=== PATIENT | female | born 1980 | race Caucasian/White ===

== ENCOUNTER → 2017-04-18 | Outpatient (CLI) | payer OTHER ==
[2017-04-20 14:19] LABS: CHLAMYDIA TRACH RNA*** NOT DETECTED (NOT DETECTED); GC (NEIS GONORRHOEAE)RNA** NOT DETECTED (NOT DETECTED)
--- NOTE | 2017-05-19 10:14 | CODING QUERY MEDICAL NECESSITY ---
CQSUPPORTING DIAGNOSIS NEEDED A supporting diagnosis is required for the test/procedure performed on this patient in order for us to be reimbursed by the patient's insurance. Please provide a supporting diagnosis for the following test/procedure listed below next to the test name along with your signature. *If there is no additional diagnosis for this patient that would support the following test/procedure please document that below next to the test/procedure. Test(s)/Procedure(s) that require a supporting diagnosis: DOS 04/18/17 SCREENING FOR SEXUALLY TRANSMITTED DISEASE Provider Signature: Date: Thank you Brittany Black Health Information Management Once completed, please kindly fax back to [phone] For questions please call [phone]
== END | disposition home or self-care (01) ==
LOC: C.LABSPEC 13:42
PROVIDERS: ATTEND Obstetrics & Gynecology
DX: Z12.4 Encounter for screening for malignant neoplasm of cervix (principal)

== ENCOUNTER → 2017-04-18 | Outpatient (CLI) | payer OTHER | END | disposition home or self-care (01) | LOC: C.LABSPEC 14:41 | PROVIDERS: ATTEND Obstetrics & Gynecology | DX: Z12.4 Encounter for screening for malignant neoplasm of cervix (principal) ==

== ENCOUNTER → 2017-04-28 | Outpatient (CLI) | payer OTHER ==
--- NOTE | 2017-04-28 12:32 | DIAGNOSTIC IMAGING REPORT ---
GALLBLADDER-ABD LIMITED CLINICAL HISTORY: R10.2 Pelvic pain pain. Nausea. TECHNIQUE: Ultrasound COMPARISON STUDY: 12/21/2006 FINDINGS: Prior cholecystectomy. Fatty infiltration of liver. Common bile duct 4 mm. Pancreas and right kidney unremarkable. IMPRESSION: Fatty infiltration of liver. Otherwise negative study post cholecystectomy The above report was generated using voice recognition software. It may contain grammatical, syntax or spelling errors. Electronically signed by: Elijah Chaves M.D. 04/28/2017 12:30 PM Dictated Date/Time: 04/28/2017 12:29 PM
--- NOTE | 2017-04-28 12:33 | DIAGNOSTIC IMAGING REPORT ---
PELVIC COMPLETE NON OB CLINICAL HISTORY: R10.2 Pelvic pain PELVIC PAIN COMPARISON STUDY: None FINDINGS: The uterus measured 9.6 cm. The endometrial stripe measured 8 mm. The right ovary measured 2.8 cm with normal vascular flow. The left ovary measured 2.6 cm with normal vascular flow. 1 cm follicular cyst.. There is no ultrasonographic evidence of ovarian torsion. It should be noted that ovarian torsion can be present with normal Doppler ultrasonographic findings. There was no evidence of pathologic free pelvic fluid. IMPRESSION: 1. 1 cm left ovarian follicular cyst. 2. Otherwise negative study. The above report was generated using voice recognition software. It may contain grammatical, syntax or spelling errors. Electronically signed by: Elijah Chaves M.D. 04/28/2017 12:31 PM Dictated Date/Time: 04/28/2017 12:30 PM
== END | disposition home or self-care (01) ==
LOC: C.ULTR 11:21
PROVIDERS: ATTEND Obstetrics & Gynecology
DX: R10.2 Pelvic and perineal pain (principal); K76.0 Fatty (change of) liver, not elsewhere classified; N83.02 Follicular cyst of left ovary

== ENCOUNTER 2019-12-18 20:14 | Observation (INO) ==
--- OUTSIDE RECORDS SUMMARY | 2019-12-18 20:17 | External Medical Summary | Continuity of Care Document ---
:1980 Author Name Johnathan De Luna, Provider Address Unavailable Unavailable , Care Team Providers Name Role Phone Grace Pozo DO Unavailable [email or web address] MIGUEL GRIJALVA Unavailable Unavailable Unavailable Unavailable Unavailable Assessments Assessed Problems:Encounter for routine gynecological examinationNon smoker Problems Encounter for routine gynecological examination (V72.31) (Z0 1.419) Non smoker (V49.89) (Z78.9) Pelvic pain (R10.2) Right upper quadrant abdominal pain of unknown etiology (789 .01) (R10.11) Polycystic ovarian syndrome (256.4) (E28.2) Mental retardation (319) (F79) Counseling for initiation of control method (V25.02) ( Z30.09) Amenorrhea (626.0) (N91.2) Acute cystitis (595.0) (N30.00) Allergies and Adverse Reactions No Known Drug Allergies (Allergy) Medications No Reported Medications Refills: 0 Procedures History of Cholecystectomy Status: Compl eted History of Appendectomy Status: Complete d Counseling for initiation of control method Immunizations Immunizations not documented Family History Grandmother Family history of Uterine Cancer (V16.49) Status: Active Social History - Smoking Status Tobacco smoking consumption unknown Interventions Labs/Procedures/ImagingTobacco Use Screening; Done: 19 Apr 2018InstructionsHigh- BMI is above normal parameters and patient education given regarding risks of abnormal BMI and associated educational information links. Patient offered dietitian referral.; Done: 19 Apr 2018Follow-ups/ReferralsFollow-up visit in 1 year; Done: 19 Apr 2018 Plan of Treatment Planned Observations Planned Goals not documented Results No Known Results Results not documented Encounters Appointment; Grace Pozo DO 19-Apr-2018 11:15 Encounter Diagnosis: Problem not documented
--- OUTSIDE RECORDS SUMMARY | 2019-12-18 20:17 | External Medical Summary | Continuity of Care Document ---
:1980 Author Name Johnathan De Luna, Provider Address Unavailable Unavailable , Care Team Providers Name Role Phone Grace Pozo DO Unavailable [email or web address] GRIJALVA Unavailable Unavailable Unavailable Unavailable Unavailable Assessments Assessed Problems:Encounter for routine gynecological examinationNon smoker Problems Acute cystitis (595.0) (N30.00) Amenorrhea (626.0) (N91.2) Counseling for initiation of control method (V25.02) ( Z30.09) Mental retardation (319) (F79) Polycystic ovarian syndrome (256.4) (E28.2) Right upper quadrant abdominal pain of unknown etiology (789 .01) (R10.11) Pelvic pain (R10.2) Non smoker (V49.89) (Z78.9) Encounter for routine gynecological examination (V72.31) (Z0 1.419) Allergies and Adverse Reactions No Known Drug [...]
[2019-12-18] MEDS ORDERED: KETOROLAC TROMETHAMINE 15 MG/ML VIAL IV ONE (20:41)
[2019-12-18] MEDS ORDERED: SODIUM CHLORIDE 0.9% 1000ML 1,000 ML IV ONE (20:41)
--- NOTE | 2019-12-18 21:16 | Emergency Department Note ---
Impression & Plan HTN (hypertension), Cough, Viral URI ED Provider Note NAME: MARGARET RIVAS AGE: 39 SEX: F : 1980 ARRIVES VIA: Walk-In INFORMANT: Patient ED PROVIDER(S): Chung Orozco DO CHIEF COMPLAINT: Cough, runny nose and sore throat HPI: Patient is a 39-year-old female who presents the ER for symptoms which have been present for the past 3 weeks. She notes she has had a nonproductive cough for the past 2 weeks. She also notes that she has had a sore throat which has been worsening. This is currently bothering her the most. Pain is a 10 out of 10. Worse with swallowing. She has been taking donr-fpf-[id number] medications with no significant improvement. She is uncertain of truly what these medications are that she is taking [id number]. She does also admit to a runny nose. She denies any recorded fevers above 100.4. She does note that she has felt hot. She does note that she has had some shortness of breath with coughing but currently does not have any now. Denies any chest pain, nausea vomiting or diarrhea. No exposure to anyone with coronavirus which she knows about. ROS: See above HPI for pertinent positives & negatives. A total of 10 systems reviewed and were otherwise negative. PAST MEDICAL HISTORY:See Below PAST SURGICAL HISTORY:See Below FAMILY HISTORY:See Below SOCIAL HISTORY:See Below HOME MEDICATIONS:See Below ALLERGIES:See Below VITALS:See Below PHYSICAL EXAMINATION: GENERAL: Sitting up in bed, obese, no acute distress, nontoxic, intermittent cough EYE EXAM: normal conjunctiva. OROPHARYNX: no exudate, no erythema, lips, buccal mucosa, and tongue normal and mucous membranes are moist NECK: supple, no nuchal rigidity, no adenopathy, non-tender LUNGS: Clear to auscultation. Normal chest wall mechanics HEART: no murmurs, S1 normal and S2 normal ABDOMEN: abdomen soft, non-tender, normo-active bowel sounds, no masses, no rebound or guarding. SKIN: no rashes and no bruising UPPER EXTREMITIES: upper extremities are grossly normal. LOWER EXTREMITIES: No pitting edema. NEURO EXAM: Normal sensorium, cranial nerves II-XII grossly intact, normal speech, no gross weakness of arms, no gross weakness of legs. MEDICAL DECISION MAKING: Patient is a 39-year-old female who presents the ER for upper respiratory symptoms which have been present for the past 3 weeks. She reports fevers, dry nonproductive cough, sore throat, runny nose and some intermittent shortness of breath previously. Does not follow with the PCP. Sister is present and sick as well with shortness of breath and a cough. Patient denies any recent trips or travel. No exposures. She does live at home with her mother. Does not work. She does also have a son. Upon presentation blood pressures have been extremely elevated. 200/140. She was given IV labetalol. EKG showed nonspecific ST wave changes which were subtle in the lateral leads. Unable to truly obtain what medication she took [id number] because she is uncertain. I question if this is a cause of her blood pressure but cannot be certain at this time. She does not follow with PCP. Chest x-ray was unremarkable. I initially upon her arrival ordered flu and coronavirus testing as I was planning discharge. After blood pressures remained elevated, she was given labetalol and bio fire was ordered. Will defer to the hospitalist for further testing but she remained on airborne precautions in the ER. D-dimer was negative. LDH was elevated. She was also given aspirin and IV fluids. Did remain in full PPE throughout stay in the ER. Triage Nursing notes reviewed. Prior medical records reviewed Vital Signs: reviewed and remarkable for hypertension Differential diagnosis: Differential diagnoses includes but is not limited to pneumonia, bronchitis, COPD/Asthma exacerbation, pneumothorax, pulmonary embolism, congestive heart failure, acute coronary syndrome ER treatment provided: See below Diagnostics interpreted by me: ECG: Sinus rhythm rate of 93 Normal axis No PVCs Subtle nonspecific ST wave changes V4 through V6 Normal QTC Cardiac Monitoring: Sinus rhythm rate of 90 Laboratory studies: As stated above and show below. Imaging studies: Chest x-ray shows no focal infiltrate. Consultation(s): Discussed with Dr. Jared Zeng. ED COURSE: Procedures: none Critical Care: None Past Med/Surg History Social History Preferred Language: Andorran Feels Safe at Home: Yes Smoking Status: Never smoker Allergies Allergies Allergy/AdvReac Type Severity Reaction Status Date / Time No Known Allergies Verified 12/18/19 21:52 Home Meds Home Medications Medication Instructions Recorded Confirmed [id number] 1 cap PO UD PRN 12/18/19 12/18/19 [Vicks DayQuil Cold-Flu Relief] Results & Data (ED) Vital Signs Vital Signs - 24 hr 12/18/19 20:19 12/18/19 21:05 12/18/19 21:16 Temperature 37.0 C Temperature Source Oral Pulse Rate 109 H 104 H 107 H Pulse Rate [Right Finger] 101 H Pulse Rate from SpO2 Sensor Pulse Rhythm Regular Respiratory Rate 20 19 Respiratory Depth Blood Pressure 213/130 H 173/125 H Blood Pressure [Right Arm] 173/125 H Blood Pressure Mean 157 138 Blood Pressure Mean [Right Arm] 141 Blood Pressure Position [Right Arm] Pulse Oximetry 99 98 100 Oxygen Delivery Method Room Air Room Air Sepsis Recent Fever Within 48 Hours No Sepsis New/Unexplained Change in Mental Status No Sepsis Action Taken by Nursing No Action Required 12/18/19 21:18 12/18/19 21:30 12/18/19 21:36 Temperature Temperature Source Pulse Rate 99 H 93 H 91 H Pulse Rate [Right Finger] Pulse Rate from SpO2 Sensor Pulse Rhythm Respiratory Rate Respiratory Depth Blood Pressure 174/124 H Blood Pressure [Right Arm] Blood Pressure Mean 149 Blood Pressure Mean [Right Arm] Blood Pressure Position [Right Arm] Pulse Oximetry 97 98 100 Oxygen Delivery Method Sepsis Recent Fever Within 48 Hours Sepsis New/Unexplained Change in Mental Status Sepsis Action Taken by Nursing 12/18/19 21:39 12/18/19 21:40 12/18/19 22:00 Temperature Temperature Source Pulse Rate 90 91 H Pulse Rate [Right Finger] 90 90 Pulse Rate from SpO2 Sensor Pulse Rhythm Respiratory Rate 20 19 Respiratory Depth Normal Blood Pressure 177/119 H Blood Pressure [Right Arm] 177/119 H 199/139 H Blood Pressure Mean 147 Blood Pressure Mean [Right Arm] 138 159 Blood Pressure Position [Right Arm] Lying Pulse Oximetry 99 98 98 Oxygen Delivery Method Room Air Sepsis Recent Fever Within 48 Hours Sepsis New/Unexplained Change in Mental Status Sepsis Action Taken by Nursing 12/18/19 22:01 12/18/19 22:02 12/18/19 22:29 Temperature Temperature Source Pulse Rate 94 H 99 H 95 H Pulse Rate [Right Finger] Pulse Rate from SpO2 Sensor Pulse Rhythm Respiratory Rate Respiratory Depth Blood Pressure 206/149 H 199/139 H 191/150 H Blood Pressure [Right Arm] Blood Pressure Mean 171 161 165 Blood Pressure Mean [Right Arm] Blood Pressure Position [Right Arm] Pulse Oximetry 100 99 Oxygen Delivery Method Sepsis Recent Fever Within 48 Hours Sepsis New/Unexplained Change in Mental Status Sepsis Action Taken by Nursing 12/18/19 22:30 12/18/19 22:33 12/18/19 22:36 Temperature Temperature Source Pulse Rate 94 H Pulse Rate [Right Finger] Pulse Rate from SpO2 Sensor 91 H Pulse Rhythm Respiratory Rate Respiratory Depth Blood Pressure 208/128 H 163/103 H Blood Pressure [Right Arm] Blood Pressure Mean 140 126 Blood Pressure Mean [Right Arm] Blood Pressure Position [Right Arm] Pulse Oximetry 98 Oxygen Delivery Method Sepsis Recent Fever Within 48 Hours Sepsis New/Unexplained Change in Mental Status Sepsis Action Taken by Nursing 12/18/19 22:40 12/18/19 22:41 12/18/19 22:50 Temperature Temperature Source Pulse Rate Pulse Rate [Right Finger] 85 Pulse Rate from SpO2 Sensor 87 87 85 Pulse Rhythm Respiratory Rate 19 Respiratory Depth Blood Pressure 169/113 H Blood Pressure [Right Arm] 163/113 H Blood Pressure Mean 132 Blood Pressure Mean [Right Arm] 129 Blood Pressure Position [Right Arm] Pulse Oximetry 97 97 97 Oxygen Delivery Method Sepsis Recent Fever Within 48 Hours Sepsis New/Unexplained Change in Mental Status Sepsis Action Taken by Nursing 12/18/19 23:00 12/18/19 23:01 12/18/19 23:02 Temperature Temperature Source Pulse Rate Pulse Rate [Right Finger] Pulse Rate from SpO2 Sensor 98 H 97 H 100 H Pulse Rhythm Respiratory Rate Respiratory Depth Blood Pressure 195/128 H Blood Pressure [Right Arm] Blood Pressure Mean 139 Blood Pressure Mean [Right Arm] Blood Pressure Position [Right Arm] Pulse Oximetry 95 95 97 Oxygen Delivery Method Sepsis Recent Fever Within 48 Hours Sepsis New/Unexplained Change in Mental Status Sepsis Action Taken by Nursing 12/18/19 23:11 12/18/19 23:20 Temperature Temperature Source Pulse Rate Pulse Rate [Right Finger] Pulse Rate from SpO2 Sensor 88 92 H Pulse Rhythm Respiratory Rate Respiratory Depth Blood Pressure Blood Pressure [Right Arm] Blood Pressure Mean Blood Pressure Mean [Right Arm] Blood Pressure Position [Right Arm] Pulse Oximetry 98 96 Oxygen Delivery Method Sepsis Recent Fever Within 48 Hours Sepsis New/Unexplained Change in Mental Status Sepsis Action Taken by Nursing Laboratory Data Result diagrams: 12/18/19 21:08 12/18/19 21:08 Lab Results 12/18/19 12/18/19 12/18/19 Range/Units 21:08 21:08 21:08 WBC 8.36 (4.8-10.8) K/uL RBC 5.32 (4.2-5.4) M/uL Hgb 10.9 L (12.0-16.0) g/dL Hct 37.0 (37-47) % MCV 69.5 L (80-100) fL MCH 20.5 L (25-34) pg MCHC 29.5 L (32-36) g/dL RDW Std Deviation 42.6 (36.4-46.3) fL RDW Coeff of Amy 17.1 H (11.5-14.5) % Plt Count 297 (130-400) K/uL MPV 10.1 (7.4-10.4) fL Immature Gran % (Auto) 0.4 % Neut % (Auto) 68.7 % Lymph % (Auto) 21.2 % Milam % (Auto) 7.3 % Eos % (Auto) 2.0 % Baso % (Auto) 0.4 % Immature Gran # (Auto) 0.03 H (0.00-0.02) K/uL Neut # (Auto) 5.75 (1.4-6.5) K/uL Lymph # (Auto) 1.77 (1.2-3.4) K/uL Milam # (Auto) 0.61 H (0.11-0.59) K/uL Eos # (Auto) 0.17 (0-0.5) K/uL Baso # (Auto) 0.03 (0-0.2) K/uL Microcytosis Present PT 10.3 (9.0-12.0) Seconds INR 1.0 (0.9-1.1) APTT 20.3 L (21.0-31.0) Seconds PTT Ratio 0.7 D-Dimer (0-500) ug/L FEU Sodium 137 (136-145) mmol/L Potassium 3.2 L (3.5-5.1) mmol/L Chloride 104 (98-107) mmol/L Carbon Dioxide 26 (21-32) mmol/L Anion Gap 7.0 (3-11) BUN 10 (7-18) mg/dl Creatinine 1.03 (0.6-1.2) mg/dl Est Cr Clr Drug Dosing Not Reportable Est GFR ( Amer) 78.7 Est GFR (Non-Af Amer) 67.9 BUN/Creatinine Ratio 9.5 L (10-20) Glucose 157 H (70-99) mg/dl Calcium 9.0 (8.5-10.1) mg/dl Total Bilirubin 0.4 (0.2-1) mg/dl AST 22 (15-37) U/L ALT 30 (12-78) U/L Alkaline Phosphatase 72 (45-117) U/L Lactate Dehydrogenase (84-246) U/L Total Protein 8.4 H (6.4-8.2) gm/dl Albumin 3.6 (3.4-5.0) gm/dl Globulin 4.8 H (2.5-4.0) gm/dl Albumin/Globulin Ratio 0.8 L (0.9-2) Influenza Type A (PCR) (Neg) Influenza Type B (PCR) (Neg) 12/18/19 12/18/19 12/18/19 Range/Units 21:08 21:08 Unknown WBC (4.8-10.8) K/uL RBC (4.2-5.4) M/uL Hgb (12.0-16.0) g/dL Hct (37-47) % MCV (80-100) fL MCH (25-34) pg MCHC (32-36) g/dL RDW Std Deviation (36.4-46.3) fL RDW Coeff of Amy (11.5-14.5) % Plt Count (130-400) K/uL MPV (7.4-10.4) fL Immature Gran % (Auto) % Neut % (Auto) % Lymph % (Auto) % Milam % (Auto) % Eos % (Auto) % Baso % (Auto) % Immature Gran # (Auto) (0.00-0.02) K/uL Neut # (Auto) (1.4-6.5) K/uL Lymph # (Auto) (1.2-3.4) K/uL Milam # (Auto) (0.11-0.59) K/uL Eos # (Auto) (0-0.5) K/uL Baso # (Auto) (0-0.2) K/uL Microcytosis PT (9.0-12.0) Seconds INR (0.9-1.1) APTT (21.0-31.0) Seconds PTT Ratio D-Dimer 380 (0-500) ug/L FEU Sodium (136-145) mmol/L Potassium (3.5-5.1) mmol/L Chloride (98-107) mmol/L Carbon Dioxide (21-32) mmol/L Anion Gap (3-11) BUN (7-18) mg/dl Creatinine (0.6-1.2) mg/dl Est Cr Clr Drug Dosing Est GFR ( Amer) Est GFR (Non-Af Amer) BUN/Creatinine Ratio (10-20) Glucose (70-99) mg/dl Calcium (8.5-10.1) mg/dl Total Bilirubin (0.2-1) mg/dl AST (15-37) U/L ALT (12-78) U/L Alkaline Phosphatase (45-117) U/L Lactate Dehydrogenase 281 H (84-246) U/L Total Protein (6.4-8.2) gm/dl Albumin (3.4-5.0) gm/dl Globulin (2.5-4.0) gm/dl Albumin/Globulin Ratio (0.9-2) Influenza Type A (PCR) Neg for Influ A (Neg) Influenza Type B (PCR) Neg for Influ B (Neg) Administered Medications Discontinued Medications Aspirin (Aspirin) 324 mg PO NOW STA Stop: 12/18/19 22:52 Last Admin: 12/18/19 23:02 Dose: 324 mg Documented by: [id number] Sodium Chloride (Nss 1000ml) 1,000 mls @ 999 mls/hr IV .Q1H1M ONE Stop: 12/18/19 21:41 Last Infusion: 12/18/19 22:09 Dose: 0 mls/hr Documented by: [id number] Admin: 12/18/19 21:12 Dose: 999 mls/hr Documented by: [id number] Ketorolac Tromethamine (Toradol) 15 mg IV NOW ONE Stop: 12/18/19 20:42 Last Admin: 12/18/19 21:12 Dose: 15 mg Documented by: [id number] Labetalol HCl (Normodyne) 10 mg IV NOW STA Stop: 12/18/19 22:24 Last Admin: 12/18/19 22:42 Dose: 10 mg Documented by: [id number] Cosigned by: [id number] Metoprolol Succinate (Toprol Xl) 50 mg PO NOW STA Stop: 12/18/19 23:10 Last Admin: 12/18/19 23:37 Dose: 50 mg Documented by: [id number] Metoprolol Tartrate (Lopressor) 5 mg IV NOW STA Stop: 12/18/19 23:10 Last Admin: 12/18/19 23:37 Dose: 5 mg Documented by: [id number] Discharge Plan Visit Data Chief Complaint: Cough Stated Complaint: COUGH RUNNY NOSE ED Provider: Chung Orozco Discharge Problem: HTN (hypertension), Cough, Viral URI Forms Stand Alone Forms: [facility] [employer] Prescriptions Prescriptions: No Action Vicks DayQuil Cold-Flu Relief 5-10-325 mg Capsule 1 cap PO UD PRN (Reason: Flu Symptoms) RF: 0 Discharge Problem: HTN (hypertension) Qualifiers: Hypertension type: unspecified Qualified Code(s): I10 - Essential (primary) hypertension
[2019-12-18 21:22] LABS: Basophils # (auto) 0.03 K/uL (0-0.2); Basophils % (auto) 0.4 %; Eosinophils # (auto) 0.17 K/uL (0-0.5); Hemoglobin 10.9 g/dL (12.0-16.0); Immature Granulocytes # (auto) 0.03 K/uL (0.00-0.02); Immature Granulocytes % (auto) 0.4 %; Lymphocytes # (auto) 1.77 K/uL (1.2-3.4); Lymphocytes % (auto) 21.2 %; Mean Corpuscular Hemoglobin 20.5 pg (25-34); Mean Corpuscular Hgb Conc 29.5 g/dL (32-36); Mean Corpuscular Volume 69.5 fL (80-100); Mean Platelet Volume 10.1 fL (7.4-10.4); Monocytes # (auto) 0.61 K/uL (0.11-0.59); Monocytes % (auto) 7.3 %; Neutrophils # (auto) 5.75 K/uL (1.4-6.5); Neutrophils % (auto) 68.7 %; Platelet Count 297 K/uL (130-400); RDW Coefficient of Variation 17.1 % (11.5-14.5); RDW Standard Deviation 42.6 fL (36.4-46.3); Red Blood Count 5.32 M/uL (4.2-5.4); White Blood Count 8.36 K/uL (4.8-10.8)
--- NOTE | 2019-12-18 21:34 | XRay Report ---
XR chest 1V portable CLINICAL HISTORY: Dyspnea COMPARISON STUDY: No previous studies for comparison. FINDINGS: Lung volumes are normal. Lungs are clear. There is no pneumothorax or pleural effusion. Car diac size is normal. Mediastinal contours are normal. There is no evidence for pulmonary edema. Incid ental note is made of cholecystectomy clips. IMPRESSION: No acute cardiopulmonary findings. ACT 112: Negative or not required by law. Electronically signed by: Nabil Yoon M.D. 12/18/2019 9:33 PM
[2019-12-18 21:37] LABS: Partial Thromboplastin Ratio 0.7; Partial Thromboplastin Time 20.3 Seconds (21.0-31.0); Prothrombin Time 10.3 Seconds (9.0-12.0)
[2019-12-18 21:44] LABS: Alanine Aminotransferase 30 U/L (12-78); Albumin Level 3.6 gm/dl (3.4-5.0); Aspartate Aminotransferase 22 U/L (15-37); BUN Creatinine Ratio 9.5 (10-20); Blood Urea Nitrogen 10 mg/dl (7-18); Carbon Dioxide 26 mmol/L (21-32); Chloride 104 mmol/L (98-107); Est GFR (African American) 78.7; Est GFR (Non-African American) 67.9; Glucose 157 mg/dl (70-99); Potassium 3.2 mmol/L (3.5-5.1); Sodium 137 mmol/L (136-145)
[2019-12-18 21:47] LABS: Albumin Globulin Ratio 0.8 (0.9-2); Alkaline Phosphatase 72 U/L (45-117); Bilirubin,Total 0.4 mg/dl (0.2-1); Globulin 4.8 gm/dl (2.5-4.0); Total Protein 8.4 gm/dl (6.4-8.2)
[2019-12-18 21:54] LABS: Influenza A virus by PCR Neg for Influ A (Neg); Influenza B virus by PCR Neg for Influ B (Neg)
[2019-12-18 22:05] LABS: Microcytosis Present
[2019-12-18] MEDS ORDERED: LABETALOL HCL IV 5 MG/ML 20ML IV STA (22:23)
[2019-12-18] MEDS ORDERED: ASPIRIN CHEW 324 MG PO STA (22:51)
[2019-12-18] MEDS ORDERED: METOPROLOL SUCC 50MG EXT REL TAB PO STA (23:09)
[2019-12-18] MEDS ORDERED: METOPROLOL TARTRATE 1 MG/ML VIAL IV STA (23:09)
[2019-12-18 23:10] LABS: D Dimer 380 ug/L FEU (0-500)
--- NOTE | 2019-12-18 23:23 | History & Physical Report ---
Date of Service December 18, 2019 Assessment & Plan (1) Malignant essential hypertension: The patient will be admitted to telemetry for serial cardiac enzymes, serial EKG's, cardiac rhythm monitoring and a 2-D echocardiogram with Dopplers. Patient reports a history of elevated blood pressure, but is a difficult historian, and is difficult to ascertain what type of treatment she may have had in the past, or if she has had any treatment. She was given labetalol 10 mg IV by the ED with no effect. We will give Lopressor 5 mg IV now along with metoprolol succinate 50 mg p.o. now, and Nitropaste 1 inch to the anterior chest wall every 6 hours. Metoprolol succinate 50 mg p.o. twice daily. Give aspirin, 4 baby tablets now, and then 1 every morning. Give potassium chloride 40 mEq p.o. now. Check a renin and aldosterone level. Present on Admission?: Yes (2) Hypokalemia: Potassium 3.2 upon admission, will check a magnesium level. Give potassium chloride 40 mEq p.o. x1 now, and repeat in a.m. Present on Admission?: Yes (3) Abnormal EKG: Nonspecific ST-T changes in lateral chest leads V4-V6 Giving 4 baby aspirin now, and placing on Nitropaste and beta-debbie. Follow EKG as blood pressure control improves. Present on Admission?: Yes (4) Cough: Patient has had shortness of breath and cough as her primary symptoms over the past 3 weeks. We will add a d-dimer to present labs. Bio [email or web address][employer] has been sent, and will likely send COVID-19 testing. Patient presently is in a negative pressure room in the ED, and will be continued for admission. We will also add procalcitonin Present on Admission?: Yes (5) Shortness of breath: See above Present on Admission?: Yes Admission and Anticipated Discharge Date Admission Date: 12/18/2019 Anticipated date of discharge: 12/20/19 History of Present Illness Chief Complaint: The patient presents to the emergency department with complaint of 3 weeks of persistent nonproductive cough and worsening sore throat, with difficulty swallowing. Primary Care Provider: Dg Clayton The patient is a 39-year-old female with past medical history including elevated blood pressure, for which she reports no treatment. The patient appears to be somewhat mentally challenged. She reports the emergency department with 3 weeks of persistent nonproductive cough and worsening sore throat and difficulty swallowing. She reports that her mother was recently sick, and that her sister is presently sick and in the emergency department. She denies any recent travels or any other sick exposures. 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 Beliefs That Will Affect Care: None Current Living Situation: Family Other Information That Helps Us Care for You: No Feels Safe at Home: Yes Safety Concerns: Feels Safe At This Time Smoking Status: Unknown if ever smoked Hx Alcohol Use: No Hx Substance Use: No Review of Systems Review of Systems: The patient denies chest pain, palpitations, lower extremity swelling, fevers, chills, sweats, nausea, vomiting, diarrhea , constipation, abdominal pain, pelvic pain, blood in urine or stool, dysuria, urinary frequency or urgency, lightheadedness, dizziness, headache, memory loss, loss of consciousness, rash, abnormal bruising or bleeding, imbalance, focal or generalized weakness, numbness or tingling in arms or legs, generalized arthralgias or myalgias, back or neck pain, or night sweats. The review of systems is otherwise negative other than for that already noted above, and at least 10 systems have been reviewed. Physical Exam Physical Exam: The patient is awake, alert and oriented 3, slow to respond but that appears to be her baseline, normocephalic and atraumatic, lying in bed and in no acute distress. HEENT--PERRL, EOMI, mucous membranes and oropharynx normal. Neck--supple. No JVD. No bruits. Thyroid normal, trachea midline, no adenopathy. Heart--normal S1 and S2. No murmurs, rubs or gallops. Lungs--clear bilaterally, no respiratory distress, no accessory muscle use. Abdomen--normal bowel sounds and soft. Nontender. Nondistended. Extremities--no cyanosis or clubbing. No edema. Dermatologic--normal skin turgor, normal color, no abnormal lymph nodes, no rash. Neurologic--cranial nerves II through XII grossly intact. Rheumatologic--normal range of motion. Psychiatric--flat affect. Results & Data Results & Data ([facility]) Vital Signs (Past 12 Hours) Vital Signs Temp Pulse Pulse Resp BP BP Pulse Ox 12/18/19 23:20 96 12/18/19 23:11 98 12/18/19 23:02 97 12/18/19 23:01 195/128 H 95 12/18/19 23:00 95 12/18/19 22:50 97 12/18/19 22:41 85 19 169/113 H 163/113 H 97 12/18/19 22:40 97 12/18/19 22:36 98 12/18/19 22:33 163/103 H 12/18/19 22:30 94 H 208/128 H 12/18/19 22:29 95 H 191/150 H 12/18/19 22:02 99 H 199/139 H 99 12/18/19 22:01 94 H 206/149 H 100 12/18/19 22:00 91 H 90 19 199/139 H 98 12/18/19 21:40 90 20 177/119 H 98 12/18/19 21:39 90 177/119 H 99 12/18/19 21:36 91 H 174/124 H 100 12/18/19 21:30 93 H 98 12/18/19 21:18 99 H 97 12/18/19 21:16 107 H 101 H 19 173/125 H 100 12/18/19 21:05 104 H 173/125 H 98 12/18/19 20:19 98.6 F 109 H 20 213/130 H 99 Laboratory Results Laboratory Results WBC 8.36 K/uL (4.8-10.8) 12/18/19 21:08 RBC 5.32 M/uL (4.2-5.4) 12/18/19 21:08 Hgb 10.9 g/dL (12.0-16.0) L 12/18/19 21:08 Hct 37.0 % (37-47) 12/18/19 21:08 MCV 69.5 fL (80-100) L 12/18/19 21:08 MCH 20.5 pg (25-34) L 12/18/19 21:08 MCHC 29.5 g/dL (32-36) L 12/18/19 21:08 RDW Std Deviation 42.6 fL (36.4-46.3) 12/18/19 21:08 RDW Coeff of Amy 17.1 % (11.5-14.5) H 12/18/19 21:08 Plt Count 297 K/uL (130-400) 12/18/19 21:08 MPV 10.1 fL (7.4-10.4) 12/18/19 21:08 Immature Gran % (Auto) 0.4 % 12/18/19 21:08 Neut % (Auto) 68.7 % 12/18/19 21:08 Lymph % (Auto) 21.2 % 12/18/19 21:08 [place] % (Auto) 7.3 % 12/18/19 21:08 Eos % (Auto) 2.0 % 12/18/19 21:08 Baso % (Auto) 0.4 % 12/18/19 21:08 Immature Gran # (Auto) 0.03 K/uL (0.00-0.02) H 12/18/19 21:08 Neut # (Auto) 5.75 K/uL (1.4-6.5) 12/18/19 21:08 Lymph # (Auto) 1.77 K/uL (1.2-3.4) 12/18/19 21:08 [place] # (Auto) 0.61 K/uL (0.11-0.59) H 12/18/19 21:08 Eos # (Auto) 0.17 K/uL (0-0.5) 12/18/19 21:08 Baso # (Auto) 0.03 K/uL (0-0.2) 12/18/19 21:08 Microcytosis Present 12/18/19 21:08 PT 10.3 Seconds (9.0-12.0) 12/18/19 21:08 INR 1.0 (0.9-1.1) 12/18/19 21:08 APTT 23.9 Seconds (21.0-31.0) 12/19/19 01:19 PTT Ratio 0.9 12/19/19 01:19 D-Dimer 380 ug/L FEU (0-500) 12/18/19 21:08 Sodium 137 mmol/L (136-145) 12/18/19 21:08 Potassium 3.2 mmol/L (3.5-5.1) L 12/18/19 21:08 Chloride 104 mmol/L (98-107) 12/18/19 21:08 Carbon Dioxide 26 mmol/L (21-32) 12/18/19 21:08 Anion Gap 7.0 (3-11) 12/18/19 21:08 BUN 10 mg/dl (7-18) 12/18/19 21:08 Creatinine 1.03 mg/dl (0.6-1.2) 12/18/19 21:08 Est Cr Clr Drug Dosing Not Reportable 12/18/19 21:08 Est GFR ( Amer) 78.7 12/18/19 21:08 Est GFR (Non-Af Amer) 67.9 12/18/19 21:08 BUN/Creatinine Ratio 9.5 (10-20) L 12/18/19 21:08 Glucose 157 mg/dl (70-99) H 12/18/19 21:08 Calcium 9.0 mg/dl (8.5-10.1) 12/18/19 21:08 Total Bilirubin 0.4 mg/dl (0.2-1) 12/18/19 21:08 AST 22 U/L (15-37) 12/18/19 21:08 ALT 30 U/L (12-78) 12/18/19 21:08 Alkaline Phosphatase 72 U/L (45-117) 12/18/19 21:08 Lactate Dehydrogenase 281 U/L (84-246) H 12/18/19 21:08 Troponin I < 0.015 ng/ml (0-0.045) 12/19/19 01:19 Total Protein 8.4 gm/dl (6.4-8.2) H 12/18/19 21:08 Albumin 3.6 gm/dl (3.4-5.0) 12/18/19 21:08 Globulin 4.8 gm/dl (2.5-4.0) H 12/18/19 21:08 Albumin/Globulin Ratio 0.8 (0.9-2) L 12/18/19 21:08 Adenovirus (PCR) Not Detected (NotDetected) 12/18/19 Unknown B. pertussis DNA (PCR) Not Detected (NotDetected) 12/18/19 Unknown B.parapertussis DNA PCR Not Detected (NotDetected) 12/18/19 Unknown C. pneumoniae DNA (PCR) Not Detected (NotDetected) 12/18/19 Unknown Coronavirus OC43 (PCR) Not Detected (NotDetected) 12/18/19 Unknown Coronavirus HKU1 (PCR) Not Detected (NotDetected) 12/18/19 Unknown Coronavirus 229E (PCR) Not Detected (NotDetected) 12/18/19 Unknown Coronavirus NL63 (PCR) Not Detected (NotDetected) 12/18/19 Unknown Human Metapneumovir PCR Not Detected (NotDetected) 12/18/19 Unknown Influenza Type A (PCR) Neg for Influ A (Neg) 12/18/19 Unknown Influenza Type A (PCR) Not Detected (NotDetected) 12/18/19 Unknown Influenza Type B (PCR) Neg for Influ B (Neg) 12/18/19 Unknown Influenza Type B (PCR) Not Detected (NotDetected) 12/18/19 Unknown M. pneumoniae (PCR) Not Detected (NotDetected) 12/18/19 Unknown Parainfluenza 1 (PCR) Not Detected (NotDetected) 12/18/19 Unknown Parainfluenza 2 (PCR) Not Detected (NotDetected) 12/18/19 Unknown Parainfluenza 3 (PCR) Not Detected (NotDetected) 12/18/19 Unknown Parainfluenza 4 (PCR) Not Detected (NotDetected) 12/18/19 Unknown RSV (PCR) Not Detected (NotDetected) 12/18/19 Unknown Entero/Rhino (PCR) Not Detected (NotDetected) 12/18/19 Unknown Diagnostic Findings [facility], [place] [phone] XRay Report Patient: EVELYNDECEMBER LAdmit Date: 12/18/19 MR#: [id number]: [address] [facility] Acct ID:[id number]: Date: 1980[facility] Zip: [place] [address] Age: 39Location: ED Sex: F Room/Bed: Att Phy:Diagnosis: COUGH RUNNY NOSE Marybeth Phy: Dg Clayton M.D.Service Date: 12/18/19 [facility] Phy:Interpreting Phy: Nabil Yoon MD Admit Phy: Ordering Phy: Chung Orozco, cc: ~ XR chest 1V portable CLINICAL HISTORY: Dyspnea COMPARISON STUDY: No previous studies for comparison. FINDINGS: Lung volumes are normal. Lungs are clear. There is no pneumothorax or pleural effusion. Cardiac size is normal. Mediastinal contours are normal. There is no evidence for pulmonary edema. Incidental note is made of cholecystectomy clips. IMPRESSION: No acute cardiopulmonary findings. ACT 112: Negative or not required by law. Electronically signed by: Nabil Yoon M.D. 12/18/2019 9:33 PM Dictated: 12/18/192131 Transcribed: 12/18/192131 Code Status & VTE Plan Code Status Full code VTE Prophylaxis Plan VTE Prophylaxis will be ordered: Yes PG Care Time/CCT Total # of Minutes Spent Total Time Spent with Patient: Total time spent is greater than 50% in coordination of care (as documented) at patient's floor/unit and/or counseling patient: Coding Level of Care Code 58494 Initial Inpt Care Lvl 3 Diagnoses Malignant essential hypertension I10 Hypokalemia E87.6 Abnormal EKG R94.31 Cough R05 Shortness of breath R06.02
[2019-12-18] MEDS ORDERED: POTASSIUM CHLORIDE 20 MEQ TABCR PO STA (23:24)
[2019-12-18] MEDS ORDERED: DEXTROSE 50% 50 ML SYRINGE IV PRN (23:24)
[2019-12-18] MEDS ORDERED: CARBOHYDRATES FOR HYPOGLYCEMIA PO PRN (23:24)
[2019-12-18] MEDS ORDERED: GLUCAGON FOR INJ 1 MG VIAL SQ PRN (23:24)
[2019-12-18] MEDS ORDERED: GLUCOSE 40% GEL 15 GM TUBE PO PRN (23:24)
[2019-12-18] MEDS ORDERED: GLUCOSE 10 TABS/TUBE PO PRN (23:24)
[2019-12-18] MEDS ORDERED: METOPROLOL TARTRATE 1 MG/ML VIAL IV PRN (23:26)
[2019-12-18] MEDS ORDERED: POTASSIUM CHLORIDE 10 MEQ TABCR PO ONE (23:26)
[2019-12-18] MEDS: NITROGLYCERIN 2% OINTMENT 30GM TUBE EXT SCH (23:37)
[2019-12-19] MEDS ORDERED: ONDANSETRON INJ 2 MG/ML 2 ML VIAL IV PRN (00:05)
[2019-12-19] MEDS ORDERED: ACETAMINOPHEN 325 MG TAB PO PRN (00:05)
[2019-12-19] MEDS ORDERED: ALUMINUM/MAGNESIUM SUSP 30 ML UDC PO PRN (00:05)
[2019-12-19] MEDS ORDERED: MAGNESIUM HYDROXIDE SUSP 30 ML UDC PO PRN (00:05)
[2019-12-19 00:40] LABS: Adenovirus PCR Not Detected (NotDetected); Coronavirus 229E PCR Not Detected (NotDetected); Coronavirus HKU1 PCR Not Detected (NotDetected); Coronavirus NL63 PCR Not Detected (NotDetected); Coronavirus OC43PCR Not Detected (NotDetected); Human Metapneumovirus PCR Not Detected (NotDetected); Influenza A PCR Not Detected (NotDetected); Influenza B PCR Not Detected (NotDetected); Parainfluenza Virus 1 PCR Not Detected (NotDetected); Parainfluenza Virus 2 PCR Not Detected (NotDetected); Parainfluenza Virus 3 PCR Not Detected (NotDetected); Parainfluenza Virus 4 PCR Not Detected (NotDetected); Rhinovirus/Enterovirus PCR Not Detected (NotDetected)
[2019-12-19 00:41] LABS: Bordetella parapertussis PCR Not Detected (NotDetected); Bordetella pertussis PCR Not Detected (NotDetected); Chlamydia pneumoniae PCR Not Detected (NotDetected); Mycoplasma pneumoniae PCR Not Detected (NotDetected); Respiratory Syncytial VirusPCR Not Detected (NotDetected)
[2019-12-19 01:46] LABS: Partial Thromboplastin Ratio 0.9; Partial Thromboplastin Time 23.9 Seconds (21.0-31.0)
[2019-12-19] MEDS: NITROGLYCERIN 2% OINTMENT 30GM TUBE EXT SCH ×3 (05:31→18:11)
[2019-12-19 06:06] LABS: Estimated Average Glucose 105 mg/dl; Hemoglobin A1C 5.3 % (4.5-5.6)
[2019-12-19 06:21] LABS: Albumin Level 3.2 gm/dl (3.4-5.0); Calcium 8.1 mg/dl (8.5-10.1); Creatinine Clr Calc Pharmacy 88.2 ml/min; Est GFR (Non-African American) 75.9; Magnesium 2.4 mg/dl (1.8-2.4); Phosphorus 2.9 mg/dl (2.5-4.9); Potassium 3.7 mmol/L (3.5-5.1)
[2019-12-19 06:31] LABS: D Dimer 300 ug/L FEU (0-500); Partial Thromboplastin Ratio 0.8; Partial Thromboplastin Time 22.6 Seconds (21.0-31.0); Prothrombin Time 10.3 Seconds (9.0-12.0)
[2019-12-19 07:18] LABS: Basophils # (auto) 0.03 K/uL (0-0.2); Basophils % (auto) 0.4 %; Eosinophils # (auto) 0.25 K/uL (0-0.5); Eosinophils % (auto) 3.4 %; Hematocrit (blood only) 33.4 % (37-47); Hemoglobin 9.9 g/dL (12.0-16.0); Immature Granulocytes # (auto) 0.02 K/uL (0.00-0.02); Immature Granulocytes % (auto) 0.3 %; Lymphocytes # (auto) 2.27 K/uL (1.2-3.4); Lymphocytes % (auto) 31.1 %; Mean Corpuscular Hemoglobin 20.7 pg (25-34); Mean Corpuscular Hgb Conc 29.6 g/dL (32-36); Mean Corpuscular Volume 69.9 fL (80-100); Mean Platelet Volume 10.2 fL (7.4-10.4); Monocytes # (auto) 0.47 K/uL (0.11-0.59); Monocytes % (auto) 6.4 %; Neutrophils # (auto) 4.25 K/uL (1.4-6.5); Neutrophils % (auto) 58.4 %; Platelet Count 309 K/uL (130-400); RDW Coefficient of Variation 17.3 % (11.5-14.5); RDW Standard Deviation 44.1 fL (36.4-46.3); Red Blood Count 4.78 M/uL (4.2-5.4); White Blood Count 7.29 K/uL (4.8-10.8)
[2019-12-19 07:31] LABS: Adenovirus PCR Not Detected (NotDetected); Bordetella parapertussis PCR Not Detected (NotDetected); Bordetella pertussis PCR Not Detected (NotDetected); Chlamydia pneumoniae PCR Not Detected (NotDetected); Coronavirus 229E PCR Not Detected (NotDetected); Coronavirus HKU1 PCR Not Detected (NotDetected); Coronavirus NL63 PCR Not Detected (NotDetected); Coronavirus OC43PCR Not Detected (NotDetected); Human Metapneumovirus PCR Not Detected (NotDetected); Influenza A PCR Not Detected (NotDetected); Influenza B PCR Not Detected (NotDetected); Mycoplasma pneumoniae PCR Not Detected (NotDetected); Parainfluenza Virus 1 PCR Not Detected (NotDetected); Parainfluenza Virus 2 PCR Not Detected (NotDetected); Parainfluenza Virus 3 PCR Not Detected (NotDetected); Parainfluenza Virus 4 PCR Not Detected (NotDetected); Respiratory Syncytial VirusPCR Not Detected (NotDetected); Rhinovirus/Enterovirus PCR Not Detected (NotDetected)
[2019-12-19 07:37] LABS: Microcytosis Present; Polychromasia 1+
[2019-12-19] MEDS: INSULIN ASPART 100 UNITS/ML 3 ML PEN SC SCH ×4 (08:26→21:37)
[2019-12-19] MEDS: ASPIRIN 81 MG ECTAB PO SCH (08:32)
[2019-12-19] MEDS: METOPROLOL SUCC 50MG EXT REL TAB PO SCH ×2 (08:32→21:52)
--- NOTE | 2019-12-19 10:49 | XCELERA ---
[id number] \\[id number]\[id number]_[id number]
[2019-12-19] MEDS: HEPARIN SOD 5,000 UNIT/0.5 ML VIAL SQ SCH ×2 (11:46→21:42)
--- NOTE | 2019-12-19 21:54 | Hospitalist Progress Note ---
Date of Service December 19, 2019 Assessment & Plan (1) Malignant essential hypertension: The patient will be admitted to telemetry for serial cardiac enzymes, serial EKG's, cardiac rhythm monitoring and a 2-D echocardiogram with Dopplers. Patient reports a history of elevated blood pressure, but is a difficult historian, and is difficult to ascertain what type of treatment she may have had in the past, or if she has had any treatment. Metoprolol succinate 50 mg p.o. twice daily. Will likely add a seconda antihypertensive agent. Continue aspirin every morning. Check a renin and aldosterone level. May consider a kidney ultrasound, however due to her possible COVID 19 THIS WILL BE Held until negative. Her BP may just be esssential given her weight. (2) Hypokalemia: replaced. will monitor. (3) Abnormal EKG: Nonspecific ST-T changes in lateral chest leads V4-V6 Giving 4 baby aspirin now, and placing on Nitropaste and beta-debbie. Follow EKG as blood pressure control improves. (4) Cough: Patient has had shortness of breath and cough as her primary symptoms over the past 3 weeks. appears to have improved. will monitor. (5) Shortness of breath: See above Admission and Anticipated Discharge Date Admission Date: December 18, 2019 Anticipated date of discharge: 12/20/19 Subjective Patient reports doing well. She has no new complaints at this time. Review of Systems Review of Systems: The patient denies chest pain, palpitations, lower extremity swelling, fevers, chills, sweats, nausea, vomiting, diarrhea , constipation, abdominal pain, pelvic pain, blood in urine or stool, dysuria, urinary frequency or urgency, lightheadedness, dizziness, headache, memory loss, loss of consciousness, rash, abnormal bruising or bleeding, imbalance, focal or generalized weakness, numbness or tingling in arms or legs, generalized arthralgias or myalgias, back or neck pain, or night sweats. The review of systems is otherwise negative other than for that already noted above, and at least 10 systems have been reviewed. Physical Exam Physical Exam: The patient is awake, alert and oriented 3, slow to respond but that appears to be her baseline, normocephalic and atraumatic, lying in bed and in no acute distress. HEENT--PERRL, EOMI, mucous membranes and oropharynx normal. Neck--supple. No JVD. No bruits. Thyroid normal, trachea midline, no adenopathy. Heart--normal S1 and S2. No murmurs, rubs or gallops. Lungs--clear bilaterally, no respiratory distress, no accessory muscle use. Abdomen--normal bowel sounds and soft. Nontender. Nondistended. Extremities--no cyanosis or clubbing. No edema. Dermatologic--normal skin turgor, normal color, no abnormal lymph nodes, no rash. Neurologic--cranial nerves II through XII grossly intact. Rheumatologic--normal range of motion. Psychiatric--flat affect. Results & Data Results & Data ([facility]) Vital Signs (Past 12 Hours) Vital Signs Temp Pulse Resp BP Pulse Ox 12/19/19 19:45 36.4 C L 81 18 162/97 H 98 12/19/19 16:30 36.6 C 78 19 155/95 H 98 12/19/19 12:03 36.6 C 79 20 158/89 H 97 PG Care Time/CCT Total # of Minutes Spent Total Time Spent with Patient: Total time spent is greater than 50% in coordination of care (as documented) at patient's floor/unit and/or counseling patient: Coding Level of Care Code 47985 Subseq Obs Care Lvl 3 Diagnoses Malignant essential hypertension I10 Hypokalemia E87.6 Abnormal EKG R94.31 Cough R05 Shortness of breath R06.02 Time Spent (min) 35
[2019-12-20] MEDS: NITROGLYCERIN 2% OINTMENT 30GM TUBE EXT SCH ×3 (00:21→12:16)
[2019-12-20 07:17] LABS: Partial Thromboplastin Ratio 0.7; Partial Thromboplastin Time < 20.0 Seconds (21.0-31.0); Prothrombin Time 10.4 Seconds (9.0-12.0)
[2019-12-20 07:39] LABS: Albumin Level 3.1 gm/dl (3.4-5.0); BUN Creatinine Ratio 13.9 (10-20); Calcium 8.4 mg/dl (8.5-10.1); Creatinine Clr Calc Pharmacy 100.6 ml/min; Est GFR (African American) 102.2; Est GFR (Non-African American) 88.2; Magnesium 2.4 mg/dl (1.8-2.4); Phosphorus 2.8 mg/dl (2.5-4.9); Potassium 3.8 mmol/L (3.5-5.1)
[2019-12-20] MEDS: ASPIRIN 81 MG ECTAB PO SCH (07:47)
[2019-12-20] MEDS: METOPROLOL SUCC 50MG EXT REL TAB PO SCH (07:47)
[2019-12-20 07:48] LABS: Basophils # (auto) 0.02 K/uL (0-0.2); Basophils % (auto) 0.3 %; Eosinophils # (auto) 0.32 K/uL (0-0.5); Eosinophils % (auto) 4.4 %; Hematocrit (blood only) 32.7 % (37-47); Hemoglobin 9.6 g/dL (12.0-16.0); Immature Granulocytes # (auto) 0.03 K/uL (0.00-0.02); Immature Granulocytes % (auto) 0.4 %; Lymphocytes # (auto) 1.93 K/uL (1.2-3.4); Lymphocytes % (auto) 26.7 %; Mean Corpuscular Hemoglobin 20.6 pg (25-34); Mean Corpuscular Volume 70.2 fL (80-100); Mean Platelet Volume 9.9 fL (7.4-10.4); Monocytes # (auto) 0.46 K/uL (0.11-0.59); Monocytes % (auto) 6.4 %; Neutrophils # (auto) 4.48 K/uL (1.4-6.5); Neutrophils % (auto) 61.8 %; Platelet Count 256 K/uL (130-400); RDW Coefficient of Variation 17.4 % (11.5-14.5); Red Blood Count 4.66 M/uL (4.2-5.4); White Blood Count 7.24 K/uL (4.8-10.8)
[2019-12-20 07:55] LABS: Mean Corpuscular Hgb Conc 29.4 g/dL (32-36)
[2019-12-20] MEDS: INSULIN ASPART 100 UNITS/ML 3 ML PEN SC SCH ×2 (08:20→12:15)
[2019-12-20 08:21] LABS: Hypochromasia Present; Microcytosis Present
[2019-12-20] MEDS: HEPARIN SOD 5,000 UNIT/0.5 ML VIAL SQ SCH (08:21)
[2019-12-20] MEDS ORDERED: AMLODIPINE BESYLATE 5 MG TAB PO ONE (09:45)
--- NOTE | 2019-12-20 10:21 | Electrocardiogram Report ---
Test Reason : Blood Pressure : / mmHG Vent. Rate : 093 BPM Atrial Rate : 093 BPM P-R Int : 162 ms QRS Dur : 084 ms QT Int : 366 ms P-R-T Axes : 052 007 028 degrees QTc Int : 455 ms Normal sinus rhythm Nonspecific ST and T wave abnormality Abnormal ECG No previous ECGs available Confirmed by Bull Shea ([id number]) on 12/20/2019 10:21:07 AM Referred By: REFERRED SELF Confirmed By:Bull Shea
--- NOTE | 2019-12-20 10:40 | Electrocardiogram Report ---
Test Reason : Blood Pressure : / mmHG Vent. Rate : 084 BPM Atrial Rate : 084 BPM P-R Int : 180 ms QRS Dur : 086 ms QT Int : 384 ms P-R-T Axes : 012 043 046 degrees QTc Int : 453 ms Normal sinus rhythm Normal ECG When compared with ECG of 18-DEC-2019 20:53, (unconfirmed) No significant change was found Confirmed by Bull Shea ([id number]) on 12/20/2019 10:39:41 AM Referred By: REFERRED SELF Confirmed By:Bull Shea
[2019-12-20 11:00] LABS: COVID-19 Patient Symptomatic? YES; PAN-SARS Coronavirus RNA NEGATIVE (NEGATIVE); SARS CoV2 RNA (COVID-19) NEGATIVE (NEGATIVE); SARS Coronavirus RNA Source NASOPHARYNGEAL
--- NOTE | 2019-12-20 12:36 | Electrocardiogram Report ---
Test Reason : Blood Pressure : / mmHG Vent. Rate : 079 BPM Atrial Rate : 079 BPM P-R Int : 176 ms QRS Dur : 080 ms QT Int : 398 ms P-R-T Axes : 051 018 014 degrees QTc Int : 456 ms Poor data quality, interpretation may be adversely affected Normal sinus rhythm Normal ECG When compared with ECG of 19-DEC-2019 08:51, No significant change was found Confirmed by Brannon Rader ([id number]) on 12/20/2019 12:36:04 PM Referred By: REFERRED SELF Confirmed By:Brannon Rader
[2019-12-22 13:35] LABS: Renin Activity 1.57 ng/mL/h (0.25-5.82)
--- NOTE | 2019-12-27 00:13 | Discharge Summary ---
Date of Service December 20, 2019 Admission HPI Per Admitting Provider The patient is a 39-year-old female with past medical history including elevated blood pressure, for which she reports no treatment. The patient appears to be somewhat mentally challenged. She reports the emergency department with 3 weeks of persistent nonproductive cough and worsening sore throat and difficulty swallowing. She reports that her mother was recently sick, and that her sister is presently sick and in the emergency department. She denies any recent travels or any other sick exposures. Principal Diagnosis malignant hypertension Discharge Exam The patient is awake, alert and oriented 3, slow to respond but that appears to be her baseline, normocephalic and atraumatic, lying in bed and in no acute distress. HEENT--PERRL, EOMI, mucous membranes and oropharynx normal. Neck--supple. No JVD. No bruits. Thyroid normal, trachea midline, no adenopathy. Heart--normal S1 and S2. No murmurs, rubs or gallops. Lungs--clear bilaterally, no respiratory distress, no accessory muscle use. Abdomen--normal bowel sounds and soft. Nontender. Nondistended. Extremities--no cyanosis or clubbing. No edema. Dermatologic--normal skin turgor, normal color, no abnormal lymph nodes, no rash. Neurologic--cranial nerves II through XII grossly intact. Rheumatologic--normal range of motion. Psychiatric--flat affect. Discharge Data Allergies Allergy/AdvReac Type Severity Reaction Status Date / Time No Known Allergies Verified 12/18/19 21:52 Consultations 12/18/19 22:36 ED Decision to Admit Stat 12/19/19 00:05 Consult Case Management - Discharge Planning Routine Hospital Course (1) Malignant essential hypertension: The patient will be admitted to telemetry for serial cardiac enzymes, serial EKG's, cardiac rhythm monitoring and a 2-D echocardiogram with Dopplers. Patient reports a history of elevated blood pressure, but is a difficult historian, and is difficult to ascertain what type of treatment she may have had in the past, or if she has had any treatment. Metoprolol succinate 50 mg p.o. twice daily. Amlodipine 5mg has been added for discharge. Continue aspirin every morning. Checked a renin and aldosterone level, not back yet as time of discharge. May consider a kidney ultrasound, will deferto PCP. Her BP may just be esssential given her weight. (2) Hypokalemia: replaced. will monitor. (3) Abnormal EKG: No significant changes noted on EKG. echo was normal. (4) Cough: Patient has had shortness of breath and cough as her primary symptoms over the past 3 weeks. appears to have improved. will monitor. (5) Shortness of breath: See above Total Time Total Time Spent Total Time Spent (In Minutes): 32 Discharge Plan Discharge Items Patient Disposition: Home - Self-Care Reason For Visit: MALIGNANT ESSENTIAL HTN, SOB, ABNL EKG Discharge Diagnosis: Malignant essential hypertension Activity: Resume your previous activity Non-emergency contact: Primary Care Provider Call non-emergency contact if: you have any medication questions Follow-up/Referrals: Dg Clayton M.D. [Primary Care Provider] - Diet: Regular Addtl Attending Provider Instructions: Coronavirus disease 2019 (COVID-19) is a virus that causes a respiratory illness. It is caused by a coronavirus called 2019 novel coronavirus (2019- nCoV). There are many types of coronavirus. Coronaviruses are a very common cause of bronchitis. They may sometimes cause lung infection(pneumonia). Symptoms can range from mild to severe respir atory illness. These viruses are also foundin some animals. COVID-19 was first found in people in [facility], in late 2019. In 2020, several cases of COVID- 19 have been confirmed in the [place] Public health officials are working to find the source. How the virus spreads is not yet fully known. It may be spread through droplets of fluid that a person coughs or sneezes into the air. It may be spread if you touch a surface with virus on it, such as a handle or object, and then touch your mouth. What are the symptoms of COVID-19? Some people have no symptoms or mild symptoms. Symptoms may appear 2 to 14 days after contact with the virus. Symptoms can include: Fever Coughing Trouble breathing What are possible complications from COVID-19? In many cases, this virus can cause infection (pneumonia) in both lungs. In some cases, this can cause . How is COVID-19 diagnosed? Your healthcare provider will ask about your symptoms. He or she will also ask about your recent travel and contact with sick people. Testing for the virus is only done through the CDC. If yourhealthcare provider thinks you may have COVID- 19, he or she will work with your local health department and the CDC on testing. Follow all instructions from your healthcare provider. COVID-19 is diagnosed by: Nasal and throat swab. A cotton-tipped swab is wiped inside your nose or throat. This is done to check for viruses in your nasal mucus. Sputum culture. A small sample of mucus coughed from your lungs (sputum) is collected if you have a cough. It is checked for the virus. How is COVID-19 treated? There is currently no medicine to treat the virus. Treatment is done to help your body while it fights the virus. This is known as supportive care. Supp ortive care may include: Pain medicine. These include acetaminophen and ibuprofen. They are used to help ease pain and reduce fever. Bed rest. This helps your body fight the illness. For severe illness, you may need to stay in the hospital. Care during severe illness may include: IV (intravenous) fluids.These are given through a vein to help keep your body hydrated. Oxygen. Supplemental oxygen or ventilation with a breathing machine (ventilator) may be given. This is done to keep enough oxygen in your body. Are you at risk for COVID-19? If youve been to a place where people have been sick with this virus, you are at risk for infection. You are at risk if you: Recently traveled to an affected area Had contact with a sick person who recently traveled to this area Had contact with a person who was diagnosed with COVID-19 How can COVID-19 be prevented? There is no vaccine yet. The best prevention is to not have contact with the virus. The CDC advises that people should not travel to areas where there are COVID-19 outbreaks right now for any reason that is not urgent. To help prevent spreading the infection, wash your hands often, or use an alcohol-basedhand tool crib manager. If you are in an area with COVID-19: Wash your hands often. Or use an alcohol-based hand tool crib manager often. Only touch your eyes, nose, or mouth with clean hands. Dont have contact with people who are sick. Follow local instructions about being in public. For example, you may be told to not use public transport for a period of time. Stay away from markets that have live or animals. Wash your hands after touching any animals. Don't touch animals that may be sick. Dont share eating or drinking tools with sick people. Dont kiss someone who is sick. Clean surfaces often with disinfectant. If you were in an area with COVID-19 in the last 14 days: Call your healthcare provider. He or she can talk with local health staff to see what action may be needed. Follow all instructions from your provider. Take your temperature every morning and evening for at least 14 days. This is to check for fever. Keep a record of the readings. Keep watch for symptoms of the virus. Tell your provider right away if you have symptoms. If you were in an area with COVID-19 and have a fever or other symptoms: Dont panic. Keep in mind that other illnesses can cause similar symptoms. Stay away from work, school, and public places. Limit physical contact with family members. Don't kiss anyone or share eating or drinking utensils. Clean surfaces you touch with disinfectant. This is to help prevent the virus from spreading. Call your healthcare provider. Explain that you have been exposed to COVID-19 and have symptoms. Do this before going to any hospital. Wait for instructions. Keep in mind that healthcare staff may wear protective equipment such as masks, gowns, gloves, and eye protection. You may be put in a separate room. This is to prevent the possible virus from spreading. Tell the healthcare staff about recent travel. This includes local travel on public transport. Staff may need to find other people you have been in contact with. Follow all instructions the healthcare staff give you. If you have been diagnosed with COVID-19 Follow all instructions from your healthcare provider. Dont leave your home, except to get medical care. Call your healthcare providers office before going. They can prepare and give you instructions. This will help prevent the virus from spreading. Dont go to work, school, or public areas. Dont use public transport or taxis. Stay away from other people in your home. Have them wear face masks around you. Dont share household items or food. Wear a face mask if you can. This includes at home or in a medical facility. Cover your face with a tissue when you cough or sneeze. Throw the tissue away. Wash your hands. Wash your hands often. Caregivers should: Follow all instructions from healthcare staff. Wear a face mask and protective clothing as advised. Wash hands often. Keep track of the sick persons symptoms. Clean surfaces, fabrics, and laundry thoroughly. Keep other people away from the sick person. When to call your healthcare provider Call your healthcare provider: If youve recently traveled and have symptoms If you have been diagnosed with COVID-19 and your symptoms are worse To learn more To find out more about COVID-19, visit the CDC website at www.cdc.gov/coronavirus/2019-ncov/index.html. [employer]. [address] [place] [address]. All rights reserved. This information is not intended as a substitute for professional medical care. Always follow your healthcare professional's instructions. This information has been adapted from [employer] You have been hospitalized for an acute medical problem. During your stay at [facility], we have made an effort to correct the problem that brought you to the hospital while keeping you as comfortable as possible. Medications were used to bring your condition under control and your discharge instructions will include directions for any medications you should take after leaving the hospital. Please make sure you see your Primary Care Provider as part of your follow up plan. Pending Studies at Discharge: No Stand-Alone Forms: My [facility], Smoking Cessation Medications and DC Order Prescriptions: New metoprolol succinate 50 mg Tablet Extended Release 24 Hr 50 mg PO BID Qty: 60 RF: 0 aspirin 81 mg Tablet,Delayed Release (Dr/Ec) 81 mg PO QAM Qty: 30 RF: 0 amlodipine 5 mg tablet 5 mg PO QPM Qty: 30 RF: 1 Continued Vicks DayQuil Cold-Flu Relief 5-10-325 mg Capsule 1 cap PO UD PRN (Reason: Flu Symptoms) RF: 0 Discharge Orders: Discharge Order (Routine); Ordered 12/20/19 Ordered By: Landon Parikh Admission Data Admit Date/Time: 12/18/19 23:22 Attending Provider: Landon Parikh Admit Provider: Jared Zeng Primary Care Provider: Dg Clayton Other Interventions: Discharge Summary Assessment (RN) Last Done: 12/20/19 16:58 DC Date/Time DO NOT enter until pt leaves facility: 12/20/19 18:01 Coding Level of Care Code D/C Day Management >30 mins Diagnoses Malignant essential hypertension I10 Hypokalemia E87.6 Abnormal EKG R94.31 Cough R05 Shortness of breath R06.02
--- NOTE | 2019-12-27 10:13 | Coding Query ---
A supporting diagnosis is required for the test/procedure performed on this patient in order for us to be reimbursed by the patient's insurance. Please provide a supporting diagnosis for the following test/procedure listed below next to the test name along with your signature. *If there is no additional diagnosis for this patient that would support the following test/procedure please document that below next to the test/procedure. Test(s)/Procedure(s) that require a supporting diagnosis: HBA1C DIAGNOSIS: Provider Signature: Date: Thank you Mara Godinez Health Information Management Once completed, please kindly fax back to [phone] For questions please call [phone] YOLANDA
== END 2019-12-20 18:01 | disposition home or self-care (01) ==
LOC: ED 20:14 → 2S 20:14 → SUATTDRO 23:22 → 2S 12-19 00:03
DX: J06.9 Acute upper respiratory infection, unspecified; I10 Essential (primary) hypertension; E87.6 Hypokalemia; R94.31 Abnormal electrocardiogram [ECG] [EKG]; R05 Cough